=== PATIENT | female | born 1970 | race Caucasian/White ===

== ENCOUNTER 2018-02-21 09:00 | Observation (INO) ==
[2018-02-21 09:58] LABS: Baso % (Auto) 0.7 % (0.0-2.0); Eos % (Auto) 1.2 % (0.0-4.0); Hematocrit 44.1 % (35.0-46.0); Hemoglobin 14.8 gm/dL (11.6-15.3); Lymph % (Auto) 24.1 % (9.0-44.0); Mean Corpuscular HGB Conc 33.6 % (32.0-36.0); Mean Corpuscular Hemoglobin 30.7 pg (27.0-34.0); Mean Corpuscular Volume 91.4 fL (80.0-100.0); Mono # (Auto) 0.2 th/mm3 (0.0-0.9); Mono % (Auto) 5.5 % (0.0-8.0); Neut # (Auto) 2.8 th/mm3 (1.8-7.7); Neut % (Auto) 68.5 % (16.0-70.0); Platelet Count 185 th/mm3 (150-450); Red Blood Count 4.83 mil/mm3 (4.00-5.30); Red Cell Distribution Width 13.4 % (11.6-17.2)
--- NOTE | 2018-02-21 10:05 | CT ---
EXAM DATE: 02/21/2018 10:02 AM EDT AGE/SEX: 47 years / Female INDICATIONS: Episode of memory loss today. CLINICAL DATA: This is the patient's initial encounter. Patient reports that signs and symptoms have been present for 1 day and indicates a pain score of 0/10. MEDICAL/SURGICAL HISTORY: None. Hysterectomy. RADIATION DOSE: 56.35 CTDI (mGy) COMPARISON: No prior exams available for comparison. TECHNIQUE: CT of the head without contrast. Using automated exposure control and adjustment of the mA and/or kV according to patient size, radiation dose was kept as low as reasonably achievable to ob tain optimal diagnostic quality images. DICOM format image data is available electronically for revi ew and comparison. FINDINGS: Cerebrum: The ventricles are normal for age. No evidence of midline shift, mass lesion, hemorrhage or acute infarction. No extraaxial fluid collections are seen. Posterior Fossa: The cerebellum and brainstem are intact. The 4th ventricle is midline. The cerebe llopontine angle is unremarkable. Extracranial: The visualized portion of the orbits is intact. Skull: The calvaria is intact. No evidence of skull fracture. CONCLUSION: 1. Negative CT Head non contrast. . Electronically signed by: Rodrigo Sanders MD 02/21/2018 10:04 AM EDT
[2018-02-21 10:07] LABS: Activated Partial Thrombo Time 24.8 sec (24.3-30.1); Prothrombin Time 10.3 sec (9.8-11.6)
[2018-02-21 10:12] LABS: Bacteria,Urine Rare /hpf; Bilirubin,Urine Negative (Negative); Clarity,Urine Hazy (Clear); Color,Urine Straw (Yellw/Straw); Glucose,Urine (UA) Negative (Negative); Leukocyte Esterase,Urine Small (Negative); Nitrite,Urine Negative (Negative); Specific Gravity,Urine 1.005 (1.002-1.035); Squamous Epithelial Cell,Urine 4 /hpf (0-5)
--- NOTE | 2018-02-21 10:23 | XR ---
EXAM DATE: 02/21/2018 10:02 AM EDT AGE/SEX: 47 years / Female INDICATIONS: Altered mental status CLINICAL DATA: This is the patient's initial encounter. Patient reports that signs and symptoms have been present for 1 day and indicates a pain score of 0/10. MEDICAL/SURGICAL HISTORY: None. . hysterectomy COMPARISON: No prior exams available for comparison. FINDINGS: 2 frontal views of the chest demonstrate the lungs to be symmetrically aerated without evidence of ma ss, infiltrate or effusion. The cardiomediastinal contours are unremarkable. Osseous structures are intact. CONCLUSION: Negative examination. Electronically signed by: Jeff Goodrich MD 02/21/2018 10:21 AM EDT
[2018-02-21 10:26] LABS: Albumin 4.5 g/dL (3.4-5.0); Anion Gap 8 meq/L (5-15); Aspartate Aminotransferase 16 U/L (15-37); Blood Urea Nitrogen 17 mg/dL (7-18); Calcium 9.6 mg/dL (8.5-10.1); Carbon Dioxide 26.9 meq/L (21.0-32.0); Chloride 108 meq/L (98-107); Glomerular Filtration Rate 64 mL/min (>89); Glucose,Random 110 mg/dL (74-106); Sodium 143 meq/L (136-145)
--- NOTE | 2018-02-21 10:34 | ED ---
HPI General Chief Complaint: Altered Mental Status Stated Complaint: Confusion Time Seen by Provider: 02/21/18 09:18 Source: patient and family Mode of arrival: ambulatory Limitations: altered mental status History of Present Illness HPI Narrative: The patient is a 47-year-old female with no significant past medical history that came to the hospital for evaluation due to transient memory loss. Symptoms started yesterday and the patient has difficulty recalling short-term memory. She does remember some things from long-term memory but she cannot remember where her children are. She has a daughter that apparently went recently to [place] and she cannot recall that. All this was noticed by her coworkers today when she was at work and she was having difficulty remembering what she needed to do. Patient states that she had a similar episode 18 years ago with subsequent neurologic evaluation and CT scans and MRIs that were all negative for any type of disease process. Patient has no other complaints at this time. Onset (ago): day(s) (Yesterday) Timing confirmed by: spouse Location: other History of same: Yes Severity: similar to previous episodes Quality: other (Short-term memory loss) Relieving factors: none Context: sudden onset On Anticoagulants: No Associated symptoms: confusion Treatments Prior to Arrival: none Related Data Home Medications Medication Instructions Recorded Confirmed Calcium 500 500 mg PO DAILY 02/21/18 02/21/18 Probiotic PO DAILY 02/21/18 ranitidine HCl 02/21/18 ranitidine HCl 5 PO DAILY 02/21/18 Allergies Allergy/AdvReac Type Severity Reaction Status Date / Time Penicillins Allergy Rash Verified 02/21/18 09:19 sulfamethoxazole Allergy Rash Verified 02/21/18 09:19 [From Bactrim] trimethoprim [From Bactrim] Allergy Rash Verified 02/21/18 09:19 Review of Systems ROS: all other systems reviewed are negative [facility] Medical History Medical History H/O: hysterectomy (Acute) Social History Social History Substance History: No History of Abuse Second Hand Smoke Exposure: No Smoking Status: Never smoker How Often Do You Have a Drink Containing Alcohol: 2 to 4 times a month Immunization History Tetanus Immunization: <5 Years Exam Narrative Exam Narrative: GENERAL: Alert in no distress oriented to person and place. SKIN: Focused skin assessment warm/dry. HEAD: Atraumatic. Normocephalic. EYES: Pupils equal and round. No scleral icterus. No injection or drainage. ENT: No nasal bleeding or discharge. Mucous membranes pink and moist. NECK: Trachea midline. No JVD. CARDIOVASCULAR: Regular rate and rhythm. No murmur appreciated. RESPIRATORY: No accessory muscle use. Clear to auscultation. Breath sounds equal bilaterally. GASTROINTESTINAL: Abdomen soft, non-tender, nondistended. Hepatic and splenic margins not palpable. MUSCULOSKELETAL: No obvious deformities. No clubbing. No cyanosis. No edema. PSYCHIATRIC: Appropriate mood and affect; insight and judgment normal. Neuro General: alert, awake, oriented (Person), gait normal, tone normal, moves all extremities, normal light touch, pain and propioception, no meningeal signs, no focal motor deficits, CN's II-XI intact bilaterally, deep tendon reflexes 2+ bilaterally and confused Cranial Nerves: PERRL, accommodation normal, EOM intact bilaterally and no nystagmus Cognition: normal cognition Speech: speech normal, no anomia, no expressive aphasia and no receptive aphasia Gait: normal gait Motor: muscle tone normal throughout Sensory Exam: no sensory deficits noted Coordination: [id number] test normal and Romberg test normal Course Reevaluation(s) Reevaluation #1: Patient still with symptoms memory loss. Time: 10:00 Consultations Consultation #1: Neurology on-call recommends MRA of brain and carotids as well as MRI of brain with and without contrast and an EEG Time: 10:33 Initial Documented Vital Signs Temperature 97.8 F 02/21/18 09:08 Pulse Rate 75 02/21/18 09:08 Respiratory Rate 18 02/21/18 09:08 Blood Pressure 128/60 02/21/18 09:08 Pulse Oximetry 100 02/21/18 09:08 Last Documented Vital Signs Temperature 97.8 F 02/21/18 09:08 Pulse Rate 77 02/21/18 10:07 Respiratory Rate 21 02/21/18 10:07 Blood Pressure 119/75 02/21/18 10:07 Pulse Oximetry 100 02/21/18 10:07 Critical Care Time Critical Care Time: Yes Total Critical Care Time: 30 Attestation: Aggregate critical care time was 30 minutes. Time to perform other separately billable procedures was not included in the critical care time. My time did not include minutes spent treating any other patients simultaneously or on activities that did not directly contribute to the patient's treatment. The services I provided to this patient were to treat and/or prevent clinically significant deterioration that could result in: Permanent disability. Loss of current lifestyle I provided critical care services requiring my management, as noted below: Chart data review, documentation time, medication orders and management, vital sign assessments/reviewing monitor data, ordering and reviewing lab tests, ordering and interpreting/reviewing x-rays and diagnostic studies, care of the patient and discussion of the patient with the admitting physicians. NIH Stroke Scale NIHSS Time Completed NIHSS Time Completed: 09:20 NIH Stroke Scale Level of Consciousness: 0-Alert Orientation Questions: 0-Answers both correct Responds to Commands: 0-Both tasks correct Gaze Eye Movement: 0-Horizontal movement WNL Visual Rodriguez: 0-No visual field defect Facial Movement: 0-Normal Motor Functions Arm LEFT: 0-No drift Motor Functions Arm RIGHT: 0-No drift Motor Functions Leg LEFT: UN-Amputated/Joint fusion Motor Functions Leg RIGHT: UN-Amputated/Joint fusion Limb Ataxia: 0-No ataxia Sensory Loss: 0-No sensory loss Best Language: 0-Normal Articulation: 0-Normal Extinction or Inattention Sensory: 0-Absent Total: 0 Medical Decision Making MDM Narrative Medical decision making narrative: Patient with transient memory loss of unknown etiology. Imaging of the head was negative for acute intracranial process neurology was consulted. Advised admission for further evaluation. Lab work was unremarkable. No complaints no focal neurologic deficits. Medical Screen Exam Complete: Yes Emergency Medical Condition: Yes Lab Data Lab results reviewed: Yes I reviewed the patient's lab results. Result diagrams: 02/21/18 09:35 02/21/18 09:35 Lab Results 02/21/18 02/21/18 02/21/18 Range/Units 09:30 09:35 09:35 WBC 4.0 (4.0-11.0) th/mm3 RBC 4.83 (4.00-5.30) mil/mm3 Hgb 14.8 (11.6-15.3) gm/dL Hct 44.1 (35.0-46.0) % MCV 91.4 (80.0-100.0) fL MCH 30.7 (27.0-34.0) pg MCHC 33.6 (32.0-36.0) % RDW 13.4 (11.6-17.2) % Plt Count 185 (150-450) th/mm3 MPV 10.0 (7.0-11.0) fL Neut % (Auto) 68.5 (16.0-70.0) % Lymph % (Auto) 24.1 (9.0-44.0) % Louisa % (Auto) 5.5 (0.0-8.0) % Eos % (Auto) 1.2 (0.0-4.0) % Baso % (Auto) 0.7 (0.0-2.0) % Neut # (Auto) 2.8 (1.8-7.7) th/mm3 Lymph # (Auto) 1.0 (1.0-4.8) th/mm3 Louisa # (Auto) 0.2 (0.0-0.9) th/mm3 Eos # (Auto) 0.0 (0.0-0.4) th/mm3 Baso # (Auto) 0.0 (0.0-0.2) th/mm3 WBC Differential . Differential Comment Auto diff final PT 10.3 (9.8-11.6) sec INR 1.0 Ratio APTT 24.8 (24.3-30.1) sec Sodium (136-145) meq/L Potassium (3.5-5.1) meq/L Chloride (98-107) meq/L Carbon Dioxide (21.0-32.0) meq/L Anion Gap (5-15) meq/L BUN (7-18) mg/dL Creatinine (0.50-1.00) mg/dL Estimated GFR (>89) mL/min POC Glucose (68-110) mg/dl Random Glucose (74-106) mg/dL Calcium (8.5-10.1) mg/dL Total Bilirubin (0.2-1.0) mg/dL AST (15-37) U/L ALT (10-53) U/L Alkaline Phosphatase (45-117) U/L Troponin I (0.02-0.05) ng/mL Total Protein (6.4-8.2) g/dL Albumin (3.4-5.0) g/dL TSH (0.358-3.740) uIU/mL Urine Color Straw (Yellw/Straw) Urine Clarity Hazy H (Clear) Urine pH 7.0 (5.0-8.5) Ur Specific [place] 1.005 (1.002-1.035) Urine Protein Negative (Neg-Trace) mg/dL Urine Glucose (UA) Negative (Negative) mg/dL Urine Ketones Negative (Negative) mg/dL Urine Occult Blood Small H (Negative) Urine Nitrate Negative (Negative) Urine Bilirubin Negative (Negative) Urine Urobilinogen Less than 2 (Less than 2) mg/dL Ur Leukocyte Esterase Small H (Negative) Urine RBC 2 (0-3) /hpf Urine WBC 1 (0-5) /hpf Ur Squamous Epith Cells 4 (0-5) /hpf Urine Bacteria Rare H (None) /hpf Micro UA Comment Culture not ind Ur Microscopic Review Not Reportable Urine Culture Comments Culture not ind 02/21/18 02/21/18 Range/Units 09:35 09:37 WBC (4.0-11.0) th/mm3 RBC (4.00-5.30) mil/mm3 Hgb (11.6-15.3) gm/dL Hct (35.0-46.0) % MCV (80.0-100.0) fL MCH (27.0-34.0) pg MCHC (32.0-36.0) % RDW (11.6-17.2) % Plt Count (150-450) th/mm3 MPV (7.0-11.0) fL Neut % (Auto) (16.0-70.0) % Lymph % (Auto) (9.0-44.0) % Louisa % (Auto) (0.0-8.0) % Eos % (Auto) (0.0-4.0) % Baso % (Auto) (0.0-2.0) % Neut # (Auto) (1.8-7.7) th/mm3 Lymph # (Auto) (1.0-4.8) th/mm3 Louisa # (Auto) (0.0-0.9) th/mm3 Eos # (Auto) (0.0-0.4) th/mm3 Baso # (Auto) (0.0-0.2) th/mm3 WBC Differential Differential Comment PT (9.8-11.6) sec INR Ratio APTT (24.3-30.1) sec Sodium 143 (136-145) meq/L Potassium 4.0 (3.5-5.1) meq/L Chloride 108 H (98-107) meq/L Carbon Dioxide 26.9 (21.0-32.0) meq/L Anion Gap 8 (5-15) meq/L BUN 17 (7-18) mg/dL Creatinine 0.93 (0.50-1.00) mg/dL Estimated GFR 64 L (>89) mL/min POC Glucose 112 H (68-110) mg/dl Random Glucose 110 H (74-106) mg/dL Calcium 9.6 (8.5-10.1) mg/dL Total Bilirubin 0.6 (0.2-1.0) mg/dL AST 16 (15-37) U/L ALT 17 (10-53) U/L Alkaline Phosphatase 46 (45-117) U/L Troponin I Less than 0.02 L (0.02-0.05) ng/mL Total Protein 7.6 (6.4-8.2) g/dL Albumin 4.5 (3.4-5.0) g/dL TSH 1.910 (0.358-3.740) uIU/mL Urine Color (Yellw/Straw) Urine Clarity (Clear) Urine pH (5.0-8.5) Ur Specific [place] (1.002-1.035) Urine Protein (Neg-Trace) mg/dL Urine Glucose (UA) (Negative) mg/dL Urine Ketones (Negative) mg/dL Urine Occult Blood (Negative) Urine Nitrate (Negative) Urine Bilirubin (Negative) Urine Urobilinogen (Less than 2) mg/dL Ur Leukocyte Esterase (Negative) Urine RBC (0-3) /hpf Urine WBC (0-5) /hpf Ur Squamous Epith Cells (0-5) /hpf Urine Bacteria (None) /hpf Micro UA Comment Ur Microscopic Review Urine Culture Comments Imaging Data Radiologist's impression: Chest X-Ray 02/21/18 09:27 CONCLUSION: Negative examination. Head CT 02/21/18 09:28 CONCLUSION: 1. Negative CT Head non contrast. . Head MRI 02/21/18 10:30 CONCLUSION: 1. Negative MR Brain with and without contrast. Head MRA 02/21/18 10:30 CONCLUSION: 1. Negative MRA [place] ([place]) non contrast. Neck MRA 02/21/18 10:30 CONCLUSION: 1. Negative MRA Carotids. Percent stenosis is calculated using the diameter of the stenotic region over the diameter of the normal distal internal carotid artery ECG Data Attestation: I personally reviewed and interpreted this ECG as follows: Interpretation: Sinus rhythm 66 bpm NJ interval 151, QTc 399 ms normal axis nonspecific ST-T wave abnormalities. No signs of acute ischemia. Discharge Plan Discharge Disposition Patient Disposition: 30 Still Patient Discharge Condition Condition: Stable Discharge Details Diagnosis: Transient global amnesia, TIA (transient ischemic attack) Physicians Team ED Provider: Jairo Lake Attending Provider: Salvatore Wan Other Providers: Bennie Davis ; Mukund Browning ; Cesar Castrejon Discharge Interventions Interventions: ED Discharge Assessment Last Done: 02/21/18 15:06 Vital Signs Last Done: 02/21/18 10:07 Status ED Status: Left Department Discharge Information Discharge Date/Time: 02/21/18 15:06
[2018-02-21 10:37] LABS: Alanine Aminotransferase 17 U/L (10-53); Alkaline Phosphatase 46 U/L (45-117); Total Protein 7.6 g/dL (6.4-8.2)
[2018-02-21] MEDS ORDERED: Gadobutrol PF 10 MMOL/10 ML Vial (for RAD) IV.SIG ONE (11:35)
--- NOTE | 2018-02-21 11:44 | MR ---
EXAM DATE: 02/21/2018 11:36 AM EDT AGE/SEX: 47 years / Female INDICATIONS: Memory loss. CLINICAL DATA: This is the patient's initial encounter. Patient reports that signs and symptoms have been present for 1 day and indicates a pain score of 0/10. MEDICAL/SURGICAL HISTORY: None. Hysterectomy. COMPAR[place]: [facility] [place] W & W/O CONTRAST, 02/21/2018.. . TECHNIQUE: 3D [id number] MRA was performed. Source images, multiplanar STS MIP, and 3D volum e MIP reconstructions were reviewed. FINDINGS: There is excellent visualization of the major intracranial arteries out to the second-order branch ve ssels. There is no evidence for aneurysm, vessel truncation or stenosis, and no evidence for vascula r malformation. CONCLUSION: 1. Negative MRA [place] ([place]) non contrast. Electronically signed by: Jeff Goodrich MD 02/21/2018 11:42 AM EDT
--- NOTE | 2018-02-21 11:51 | MR ---
EXAM DATE: 02/21/2018 11:41 AM EDT AGE/SEX: 47 years / Female INDICATIONS: Memory loss. CLINICAL DATA: This is the patient's initial encounter. Patient reports that signs and symptoms have been present for 1 day and indicates a pain score of 0/10. MEDICAL/SURGICAL HISTORY: None. Hysterectomy. [place] [facility] [place].. . TECHNIQUE: Multiplanar, multisequence examination of the brain was performed without and with 10 ml G adavist (gadobutrol) contrast as a single exam dose. FINDINGS: Cerebrum: The ventricles are normal for age. No evidence of midline shift, mass lesion, hemorrhage or acute infarction. No extraaxial fluid collections are seen. The pituitary gland and suprasellar cistern are normal in configuration. White Matter: No significant signal abnormalities are seen in the white matter. Posterior Fossa: The cerebellum and brainstem are intact. The 4th ventricle is midline. The cerebel lopontine angle is unremarkable. The cerebellar tonsils are normal in position. Diffusion Imaging: No focal areas of restricted diffusion are seen. No evidence of acute infarction . Extracranial: The visualized portions of the orbits and paranasal sinuses are unremarkable. Post Contrast: No abnormal areas of parenchymal or dural enhancement. No evidence of blood-brain ba rrier breakdown. CONCLUSION: 1. Negative MR Brain with and without contrast. Electronically signed by: Jeff Goodrich MD 02/21/2018 11:50 AM EDT
--- NOTE | 2018-02-21 12:05 | MR ---
EXAM DATE: 02/21/2018 11:58 AM EDT AGE/SEX: 47 years / Female INDICATIONS: Stenosis. CLINICAL DATA: This is the patient's initial encounter. Patient reports that signs and symptoms have been present for 1 day and indicates a pain score of 0/10. MEDICAL/SURGICAL HISTORY: None. Hysterectomy. COMPARISON: C, MRA HEAD W/O CONTRAST, 02/21/2018. C, MR HEAD W & W/O CONTRAST, 02/21/2018. C , CT HEAD W/O CONTRAST, 02/21/2018. . TECHNIQUE: 10 ml Gadavist (gadobutrol) contrast infused MRA (single exam dose) of the extracranial circulation was performed using a neurovascular coil. Postprocessing was performed, including rotati ng sub-volume maximum intensity projections of each carotid artery, rotating full-volume maximum inte nsity projections of both carotid arteries, sagittal and coronal sliding thin-slab reformations of ea ch carotid artery, and left oblique sliding thin-slab reformation through the aortic arch to include the origin of the arch branch vessels. FINDINGS: Aortic Arch : There is a three-vessel origin of the great vessels from the aorta. No evidence of o stial narrowing. Right Carotid : The common carotid artery is intact. The carotid bulb has a normal configuration wi thout ulceration or narrowing. The internal carotid artery lumen is smooth without stenosis. The ex ternal carotid artery is intact. Left Carotid : The common carotid artery is intact. The carotid bulb has a normal configuration wit hout ulceration or narrowing. The internal carotid artery lumen is smooth without stenosis. The ext ernal carotid artery is intact. Vertebrals : The vertebral arteries have a symmetric diameter. No stenotic lesions are seen. CONCLUSION: 1. Negative MRA Carotids. Percent stenosis is calculated using the diameter of the stenotic region over the diameter of the nor mal distal internal carotid artery Electronically signed by: Rodrigo Sanders MD 02/21/2018 12:04 JACLYN
--- NOTE | 2018-02-21 13:07 | ECG ---
Date Performed: 02/21/2018 Time Performed: 09:38:48 PTAGE: 47 years EKG: Sinus rhythm NORMAL ECG NO PREVIOUS TRACING DOCTOR: Mo Lamb Interpretating Date/Time 02/21/2018 13:05:16
--- NOTE | 2018-02-21 13:53 | P.CONNEU ---
History of Present Illness Service: Neurology Primary Care Provider: Lopez Hernández Chief Complaint: Confusion History of Present Illness: Pleasant 47-year-old female brought in for acute episode of confusion. Confusion with difficulty and memory of recent events. This is slowly been improving. She had a similar episode approximately 18 years ago was seen by neurologist testing at that time was negative. She has not had any episodes since that time. Denies any history of seizure, TIA or stroke. Does have a history of low blood pressure and will get lightheaded on going from sitting to standing position. She denies any sick contacts any head or neck trauma any visual loss focal weakness vertigo. No history of tremors. Of note confusion is a small breakfast and may not eat up until dinnertime. She does work full-time. Glucose 112 point care. Blood pressure 120s over 60s. She otherwise feels well. Review of Systems All other systems reviewed negative except as stated in HPI PMFSH - History History Provided By: Patient, Family Member, Friend - Medical History Medical History: Medical History (Last Updated 02/21/18 @ 09:22 by Ute Matos) H/O: hysterectomy - Tobacco History Second Hand Smoke Exposure: No Tobacco Use In Past 30 Days: No Smoking Status: Never smoker - Alcohol History How Often Do You Have a Drink Containing Alcohol: Monthly or less - Substance Use History Substance History: No History of Abuse - Immunization History Tetanus Immunization: <5 Years Medications and Allergies Active Medications: Active Medications Sodium Chloride (Ns Flush) 2 ml IV.FLUSH PRN PRN PRN Reason: FLUSH AFTER USING IV ACCESS Allergies Allergy/AdvReac Type Severity Reaction Status Date / Time Penicillins Allergy Rash Verified 02/21/18 09:19 sulfamethoxazole Allergy Rash Verified 02/21/18 09:19 [From Bactrim] trimethoprim [From Bactrim] Allergy Rash Verified 02/21/18 09:19 Home Medications Medication Instructions Recorded Confirmed Type No Known Home Medications 02/21/18 02/21/18 History Exam Vital signs: Vital Signs 02/21/18 09:08 02/21/18 10:07 Temperature 97.8 F Pulse Rate 75 77 Respiratory Rate 18 21 Blood Pressure 128/60 119/75 Pulse Oximetry 100 100 Intake & Output 02/20/18 02/21/18 02/21/18 18:59 06:59 18:59 Weight 68.039 kg Narrative: Awake alert oriented 3 appropriate. No aphasia. Clear articulate speech. was next to her initial recognize conversation well. Extraocular movements intact visual hanna full pupils 3-2 mm bilaterally no facial asymmetry tongue midline strength 5 out of 5 upper lower limbs good muscle bulk and tone, no clonus plantarflex response reflexes 1+ symmetric. Gait not assessed secondary potential fall risk - Constitutional no acute distress - Routine HEENT Exam Head: Present: normocephalic Eye: Present: EOMI Results - Labs CBC & Chem 7: 02/21/18 09:35 02/21/18 09:35 Labs: Laboratory Results - last 24 hr 02/21/18 02/21/18 02/21/18 09:30 09:35 09:35 WBC 4.0 RBC 4.83 Hgb 14.8 Hct 44.1 MCV 91.4 MCH 30.7 MCHC 33.6 RDW 13.4 Plt Count 185 MPV 10.0 Neut % (Auto) 68.5 Lymph % (Auto) 24.1 [place] % (Auto) 5.5 Eos % (Auto) 1.2 Baso % (Auto) 0.7 Neut # (Auto) 2.8 Lymph # (Auto) 1.0 [place] # (Auto) 0.2 Eos # (Auto) 0.0 Baso # (Auto) 0.0 WBC Differential . Differential Comment Auto diff final PT 10.3 INR 1.0 APTT 24.8 Sodium Potassium Chloride Carbon Dioxide Anion Gap BUN Creatinine Estimated GFR POC Glucose Random Glucose Calcium Total Bilirubin AST ALT Alkaline Phosphatase Troponin I Total Protein Albumin TSH Urine Color Straw Urine Clarity Hazy H Urine pH 7.0 Ur Specific [place] 1.005 Urine Protein Negative Urine Glucose (UA) Negative Urine Ketones Negative Urine Occult Blood Small H Urine Nitrate Negative Urine Bilirubin Negative Urine Urobilinogen Less than 2 Ur Leukocyte Esterase Small H Urine RBC 2 Urine WBC 1 Ur Squamous Epith Cells 4 Urine Bacteria Rare H Micro UA Comment Culture not ind Ur Microscopic Review Not Reportable Urine Culture Comments Culture not ind 02/21/18 02/21/18 09:35 09:37 WBC RBC Hgb Hct MCV MCH MCHC RDW Plt Count MPV Neut % (Auto) Lymph % (Auto) [place] % (Auto) Eos % (Auto) Baso % (Auto) Neut # (Auto) Lymph # (Auto) [place] # (Auto) Eos # (Auto) Baso # (Auto) WBC Differential Differential Comment PT INR APTT Sodium 143 Potassium 4.0 Chloride 108 H Carbon Dioxide 26.9 Anion Gap 8 BUN 17 Creatinine 0.93 Estimated GFR 64 L POC Glucose 112 H Random Glucose 110 H Calcium 9.6 Total Bilirubin 0.6 AST 16 ALT 17 Alkaline Phosphatase 46 Troponin I Less than 0.02 L Total Protein 7.6 Albumin 4.5 TSH 1.910 Urine Color Urine Clarity Urine pH Ur Specific [place] Urine Protein Urine Glucose (UA) Urine Ketones Urine Occult Blood Urine Nitrate Urine Bilirubin Urine Urobilinogen Ur Leukocyte Esterase Urine RBC Urine WBC Ur Squamous Epith Cells Urine Bacteria Micro UA Comment Ur Microscopic Review Urine Culture Comments - Imaging Impressions Chest X-Ray 02/21/18 09:27 CONCLUSION: Negative examination. Head CT 02/21/18 09:28 CONCLUSION: 1. Negative CT Head non contrast. . Head MRI 02/21/18 10:30 CONCLUSION: 1. Negative MR Brain with and without contrast. Head MRA 02/21/18 10:30 CONCLUSION: 1. Negative MRA [place] ([place]) non contrast. Neck MRA 02/21/18 10:30 CONCLUSION: 1. Negative MRA Carotids. Percent stenosis is calculated using the diameter of the stenotic region over the diameter of the normal distal internal carotid artery Review/Management - Diagnosis (1) Transient global amnesia Code(s): G45.4 - Transient global amnesia Status: Acute Current Visit: Yes (2) TIA (transient ischemic attack) Code(s): G45.9 - Transient cerebral ischemic attack, unspecified Status: Acute Current Visit: Yes - Review/Management Plan: Her current amnestic episode Considerations include complex partial seizure, TIA Recommendations Follow-up imaging EEG Cardiology evaluation for consideration of BANDAR, hematology evaluation for exclusion of hypercoagulable state Aspirin daily Suggest the patient have frequent meals during the day She also gives symptoms of orthostatic intolerance she may be related to reduced sympathetic tone or mild dysautonomia. This can be further evaluated in the outpatient setting. Therapy
--- NOTE | 2018-02-21 13:55 | P.HPIM ---
History of Present Illness Service: [facility] Primary Care Physician: Lopez Hernández Chief Complaint: memory loss History of Present Illness: Mrs. Segovia is a 47 yo F who presented to [place] ED with due to recent memory loss. Interview assisted/ collaborated by . Patient reportedly was doing well yesterday; this morning, she has not been able to remember short term events. This was noticed by patient's boss also today. Due to this symptom, patient was taken to hospital for evaluation. Patient had normal memory yesterday. Today, she has not been able to remember conversations happening minutes before or recent events today or many events for the past week. She does remember isolated events such as her daughter crying on the phone. Patient also is having difficulty with remembering where things are in a building such as where a bathroom is. Patient has intact terminal carman memory. Patient has otherwise been doing well. She does not report associated vision changes, headache, numbness/tingling/weakness in extremities, confusion, or change in other senses. has not noticed changes at home. Patient does have chronic lightheadedness when standing from seated position. She associates this with history of hypotension. Patient has not had any recent stress or Psychologic trauma. She lost 30 lbs last year when overworked but has not had any recent weight loss this school year. 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 She recently went to [place] Monday but no other travel. Normal oral intake of regular diet. Patient reports similar episode of symptoms 18 years ago which was associated with right arm and leg paralysis vs weakness where she could not/had difficulty moving right extremities. She states that she had a neuro workup with imaging at that time which was reassuring. This resolved spontaneously after ~1.5 weeks. patient also reports that her blood pressure is chronically low and she gets lightheaded frequently. She eats salt abundantly to help improve her blood pressure. Patient takes Calcium, Ranitidine, and OTC allergy medication but not other medications. - Diagnosis (1) Lightheadedness (2) Transient global amnesia Inpatient Certification: I certify that the inpatient services were ordered in accordance with Medicare regulations governing the order. This includes certification that hospital inpatient services are reasonable and necessary and in the case of services not specified as inpatient-only under 42 CFR 419.22(n), that they are appropriately provided as inpatient services in accordance to with the 2-midnight benchmark under 43 CFR 412.3(e) Review of Systems All other systems reviewed negative except as stated in HPI Constitutional: Denies fatigue, Denies lack of energy Eyes: Denies blurry vision, Denies change in vision Ears, Nose, Mouth, and Throat: Denies headache(s), Denies sinus pressure Cardiovascular: Reports lightheadedness, Denies chest pain, Denies shortness of breath with activity Respiratory: Denies cough, Denies shortness of breath Gastrointestinal: Denies abdominal pain, Denies change in bowel habits Genitourinary: Denies urinary incontinence, Denies urinary urgency Musculoskeletal: Denies numbness, Denies tingling Skin/Breast: Denies itching, Denies rash Neurologic: Reports memory loss, Denies abnormal speech Hematologic/Lymphatic: Denies easy bleeding, Denies easy bruising PMFSH - History History Provided By: Patient, Family Member, Friend - Medical History Medical History: Medical History (Last Updated 02/21/18 @ 22:20 by Salvatore Wan MD) H/O: hysterectomy Lightheadedness - Surgical History Surgical History: Surgical History (Last Updated 02/21/18 @ 22:15 by Salvatore Wan MD) H/O rhinoplasty - Family History Family History: Family History (Last Updated 02/21/18 @ 22:19 by Salvatore Wan MD) Other HTN (hypertension) Hyperlipidemia Psychiatric illness - Tobacco History Second Hand Smoke Exposure: No Tobacco Use In Past 30 Days: No Smoking Status: Never smoker - Alcohol History How Often Do You Have a Drink Containing Alcohol: Monthly or less - Substance Use History Substance History: No History of Abuse - Immunization History Tetanus Immunization: <5 Years Medications and Allergies Active Medications: Active Medications Sodium Chloride (Ns Flush) 2 ml IV.FLUSH PRN PRN PRN Reason: FLUSH AFTER USING IV ACCESS Allergies Allergy/AdvReac Type Severity Reaction Status Date / Time Penicillins Allergy Rash Verified 02/21/18 09:19 sulfamethoxazole Allergy Rash Verified 02/21/18 09:19 [From Bactrim] trimethoprim [From Bactrim] Allergy Rash Verified 02/21/18 09:19 Home Medications Medication Instructions Recorded Confirmed Type Calcium 500 500 mg PO DAILY 02/21/18 02/21/18 History Probiotic PO DAILY 02/21/18 History ranitidine HCl 02/21/18 History ranitidine HCl 5 PO DAILY 02/21/18 History Exam Vital signs: Vital Signs 02/21/18 09:08 02/21/18 10:07 Temperature 97.8 F Pulse Rate 75 77 Respiratory Rate 18 21 Blood Pressure 128/60 119/75 Pulse Oximetry 100 100 Intake & Output 02/20/18 02/21/18 02/21/18 18:59 06:59 18:59 Weight 68.039 kg Narrative: General: No acute distress Skin: no visible rashes or lesions Neck: No appreciated lymphadenopathy or thyromegaly CV: regular rate and rhythm; normal perfusion Resp: CTAB; normal rate MSK: Grossly normal motor function and ROM Neuro: Awake, alert. CN normal. Normal peripheral and motor function. Patient reported significant memory impairment in response to questions regarding recent events. Patient with clear speech; seemed to have normal cognitive ability when thinking of prior events Psych: no appreciated anxiety or obvious affect change Results - Labs CBC & Chem 7: 02/21/18 09:35 02/21/18 09:35 Labs: Short CBC 02/21/18 Range/Units 09:35 WBC 4.0 (4.0-11.0) th/mm3 Hgb 14.8 (11.6-15.3) gm/dL Hct 44.1 (35.0-46.0) % Plt Count 185 (150-450) th/mm3 BMP 02/21/18 09:35 Sodium 143 Potassium 4.0 Chloride 108 H Carbon Dioxide 26.9 BUN 17 Creatinine 0.93 Calcium 9.6 Cardiac Enzymes 02/21/18 Range/Units 09:35 Troponin I Less than 0.02 L (0.02-0.05) ng/mL Liver Function 02/21/18 Range/Units 09:35 Total Bilirubin 0.6 (0.2-1.0) mg/dL AST 16 (15-37) U/L ALT 17 (10-53) U/L Alkaline Phosphatase 46 (45-117) U/L Albumin 4.5 (3.4-5.0) g/dL Urine 02/21/18 Range/Units 09:30 Urine Color Straw (Yellw/Straw) Urine Clarity Hazy H (Clear) Urine pH 7.0 (5.0-8.5) Ur Specific [place] 1.005 (1.002-1.035) Urine Protein Negative (Neg-Trace) mg/dL Urine Glucose (UA) Negative (Negative) mg/dL - Imaging Impressions Chest X-Ray 02/21/18 09:27 CONCLUSION: Negative examination. Head CT 02/21/18 09:28 CONCLUSION: 1. Negative CT Head non contrast. . Head MRI 02/21/18 10:30 CONCLUSION: 1. Negative MR Brain with and without contrast. Head MRA 02/21/18 10:30 CONCLUSION: 1. Negative MRA [place] ([place]) non contrast. Neck MRA 02/21/18 10:30 CONCLUSION: 1. Negative MRA Carotids. Percent stenosis is calculated using the diameter of the stenotic region over the diameter of the normal distal internal carotid artery Caprini VTE Risk Assessment Caprini VTE Risk Assessment: No/Low Risk (score <= 1) Caprini Risk Assessment Model: Point Value = 1 Point Value = 2 Point Value = 3 Point Value = 5 Age 41-60 Minor surgery BMI > 25 kg/m2 Swollen legs Varicose veins or History of unexplained or recurrent spontaneous Oral contraceptives or hormone replacement Sepsis (< 1 month) Serious lung disease, including pneumonia (< 1 month) Abnormal pulmonary function Acute myocardial infarction Congestive heart failure (< 1 month) History of inflammatory bowel disease Medical patient at bed rest Age 61-74 Arthroscopic surgery Major open surgery (> 45 min) Laparoscopic surgery (> 45 min) Malignancy Confined to bed (> 72 hours) Immobilizing plaster cast Central venous access Age >= 75 History of VTE Family history of VTE Factor V Leiden Prothrombin [id number] Lupus anticoagulant Anticardiolipin antibodies Elevated serum homocysteine Heparin-induced thrombocytopenia Other congenital or acquired thrombophilia Stroke (< 1 month) Elective arthroplasty Hip, pelvis, or leg fracture Acute spinal cord injury (< 1 month) Prophylaxis Regimen: Total Risk Factor Score Risk Level Prophylaxis Regimen 0-1 Low Early ambulation 2 Moderate Order ONE of the following: *Sequential Compression Device (SCD) *Heparin 5000 units SQ BID 3-4 Higher Order ONE of the following medications: *Heparin 5000 units SQ TID *Enoxaparin/Lovenox 40 mg SQ daily (WT < 150 kg, CrCl > 30 mL/min) *Enoxaparin/Lovenox 30 mg SQ daily (WT < 150 kg, CrCl > 10-29 mL/min) *Enoxaparin/Lovenox 30 mg SQ BID (WT < 150 kg, CrCl > 30 mL/min) AND/OR *Sequential Compression Device (SCD) 5 or more Highest Order ONE of the following medications: *Heparin 5000 units SQ TID (Preferred with Epidurals) *Enoxaparin/Lovenox 40 mg SQ daily (WT < 150 kg, CrCl > 30 mL/min) *Enoxaparin/Lovenox 30 mg SQ daily (WT < 150 kg, CrCl > 10-29 mL/min) *Enoxaparin/Lovenox 30 mg SQ BID (WT < 150 kg, CrCl > 30 mL/min) AND *Sequential Compression Device (SCD) Assessment and Plan - Assessment (1) Lightheadedness Code(s): R42 - Dizziness and giddiness Status: Acute (2) Transient global amnesia Code(s): G45.4 - Transient global amnesia Status: Acute - Plan amnesia Impression: Unclear etiology. Prior episode 18 years prior associated with right sided weakness. No known cause. DDX- cerebrovascular vs migrainous vs seizure induced vs psych Imaging: Head CT negative Brain MRI w/wo contrast negative MRA neck- carotids- negative MRA Head - [place]- negative Labs: CMP unremarkable, glucose unremarkable Low suspicion for toxicology Neurology consulted -Brain /arterial imaging as above -EEG -Cardiology eval to consider BANDAR -Hematology eval to check for hypercoaguable statate -ASA daily -Depending on results of neuro work-up, can consider psych eval if negative due to stress induced weight loss last year as psych trigger possible Lightheadedness/low BP Impression: Patient suggests orthostatic HTN chronically -will monitor VS during hospitalization -Discussed possibility of evaluation after discharge with consultation if needed ; treatment options such as salt tabs/midodrine if refractory orthostatic HTN discussed as possibilities DVT PPX -Bilateral SCD's Code Status: Full code
[2018-02-21] MEDS ORDERED: Acetaminophen 325 MG Tablet PO PRN (14:10)
[2018-02-21] MEDS: Aspirin 325 MG Tablet PO SCH (15:52)
--- NOTE | 2018-02-21 16:27 | MB ---
cc: Mukund Browning MD DATE: 02/21/2018 REASON FOR CONSULTATION: BANDAR, as the patient has TIAs. HISTORY OF PRESENT ILLNESS: Currently, at the time I saw the patient, she was getting an EEG. She denies dysphagia. Further history is obtained from the chart. She is getting an EEG at the time. The patient apparently presented with altered mental status and confusion. PAST MEDICAL HISTORY: Includes hysterectomy. SOCIAL HISTORY: Rarely drinks alcohol. Denies tobacco use. ALLERGIES: PENICILLIN, SULFAMETHOXAZOLE, TRIMETHOPRIM. MEDICATIONS IN THE HOSPITAL: Aspirin 325 daily. PHYSICAL EXAMINATION: VITAL SIGNS: Pulse 77, blood pressure 119/75, sats 100% on room air. GENERAL: She is alert and oriented x3, in no acute distress, getting an EEG done. Temperature 97.8. NECK: Supple. No JVD. No bruit. CARDIOVASCULAR: S1, S2. No murmurs, rubs, or gallops. LUNGS: Clear to auscultation bilaterally. ABDOMEN: Soft, nontender, nondistended with positive bowel sounds. EXTREMITIES: Lower extremity edema. DIAGNOSTIC DATA: EKG: Normal sinus rhythm at 66 beats per minute, otherwise normal. Nonspecific ST-T wave changes. Chest x-ray negative. Head CT: Negative CT head, noncontrast. Head MRA: Negative MRA, [place], noncontrast. Head MRI: Negative MRI brain with and without contrast. Neck MRA: Negative carotids. LABORATORY DATA: White count 4.0, hemoglobin 14.8, hematocrit 44.1, platelet count 185,000. INR 1.0. Sodium 143, potassium 4.0, chloride 100, bicarbonate 26.9, BUN 17, creatinine 0.93, glucose 112. Troponin less than 0.02. LFTs normal. TSH 1.910. DIAGNOSES: 1. Altered mental status. 2. Confusion. 3. Hyperglycemia. 4. Transient ischemic attack. DISCUSSION: At this point in time, the patient denies dysphagia. We will schedule a BANDAR, schedule permitting, per request of Dr. Davis. MD SHEYLA Todd/ashley , 03:43 PM , 03:50 PM
--- NOTE | 2018-02-21 20:05 | MG ---
cc: Shawna Silva MD EEG NUMBER [id number]. REFERRING PHYSICIAN: Dr. Lake CLINICAL HISTORY: In room C28 for possible TIA. Photic stimulation awake, alert, oriented. MRI negative. Admitted with episode of confusion, mental status change, had trouble with memory of recent events. History of alcohol use. No medications listed. Looks good. DESCRIPTION OF THE PATIENT'S RECORD. The patient has normal alpha rhythm of 9 Hz, 20 microvolt somewhat low amplitude, symmetrical background. EKG does look prime sinus. Photic stimulation was done at the beginning with a mild driving response. No epileptiform features seen. A lot of eye movement towards the end. Answered questions correctly. IMPRESSION: Normal appearing, awake study without any epileptiform features. Clinical correlation. Shawna Silva MD DF/ct , 07:41 PM , 07:45 PM
[2018-02-21 22:09] LABS: Vitamin B12 147 pg/mL (193-986)
[2018-02-22 08:10] LABS: Baso % (Auto) 0.9 % (0.0-2.0); Eos # (Auto) 0.1 th/mm3 (0.0-0.4); Eos % (Auto) 4.1 % (0.0-4.0); Lymph # (Auto) 1.3 th/mm3 (1.0-4.8); Lymph % (Auto) 39.5 % (9.0-44.0); Mean Corpuscular HGB Conc 34.1 % (32.0-36.0); Mean Corpuscular Hemoglobin 30.5 pg (27.0-34.0); Mean Corpuscular Volume 89.5 fL (80.0-100.0); Mean Platelet Volume 10.2 fL (7.0-11.0); Mono # (Auto) 0.2 th/mm3 (0.0-0.9); Mono % (Auto) 6.9 % (0.0-8.0); Neut # (Auto) 1.6 th/mm3 (1.8-7.7); Neut % (Auto) 48.6 % (16.0-70.0); Platelet Count 149 th/mm3 (150-450); Red Blood Count 4.25 mil/mm3 (4.00-5.30); Red Cell Distribution Width 13.2 % (11.6-17.2); White Blood Count 3.3 th/mm3 (4.0-11.0)
[2018-02-22 08:48] LABS: Alanine Aminotransferase 13 U/L (10-53); Albumin 3.5 g/dL (3.4-5.0); Alkaline Phosphatase 34 U/L (45-117); Anion Gap 7 meq/L (5-15); Aspartate Aminotransferase 8 U/L (15-37); Blood Urea Nitrogen 18 mg/dL (7-18); Calcium 8.7 mg/dL (8.5-10.1); Carbon Dioxide 29.2 meq/L (21.0-32.0); Chloride 109 meq/L (98-107); Glomerular Filtration Rate 67 mL/min (>89); Glucose,Random 86 mg/dL (74-106); Potassium 4.1 meq/L (3.5-5.1); Sodium 145 meq/L (136-145)
[2018-02-22] MEDS ORDERED: Chlorhexidine Gluconate 2% 1 Pack (2 Cloths) TOPICAL ONE (09:09)
[2018-02-22] MEDS ORDERED: Metoprolol Tartrate 25 MG Tablet PO ONE (09:09)
--- NOTE | 2018-02-22 09:28 | P.PNNEU ---
Subjective Subjective Comments: No acute events overnight. Spouse states he began remembering everything after about 4 PM after she received an aspirin. Denies any chest pain dyspnea focal weakness visual loss. Active Medications: Active Medications Acetaminophen (Tylenol) 650 mg PO Q4H PRN PRN Reason: Temp > 100.4 Aspirin (Aspirin) 325 mg PO DAILY [facility] Last Admin: 02/21/18 15:52 Dose: 325 mg Lactated Ringer's (Lr 1000 Ml Inj) 1,000 mls @ 30 mls/hr IV.SIG .Q24H TESSA Stop: 02/23/18 09:14 Sodium Chloride (Ns Inj) 500 mls @ 30 mls/hr IV.SIG .Q10H TESSA Ondansetron HCl (Zofran Inj) 4 mg IV.PUSH Q6H PRN PRN Reason: NAUSEA OR VOMITING Sodium Chloride (Ns Flush) 2 ml IV.FLUSH PRN PRN PRN Reason: FLUSH AFTER USING IV ACCESS Allergies/Adverse Reactions: Allergies Allergy/AdvReac Type Severity Reaction Status Date / Time Penicillins Allergy Rash Verified 02/21/18 09:19 sulfamethoxazole Allergy Rash Verified 02/21/18 09:19 [From Bactrim] trimethoprim [From Bactrim] Allergy Rash Verified 02/21/18 09:19 Review of Systems All other systems reviewed negative except as stated in HPI Physical Exam Vital signs: Vital Signs 02/21/18 10:07 02/21/18 16:00 02/21/18 20:00 Temperature 99.0 F 97.9 F Pulse Rate 77 68 Respiratory Rate 21 14 18 Blood Pressure 119/75 117/57 L 100/51 L Pulse Oximetry 100 100 97 02/22/18 00:00 02/22/18 04:00 02/22/18 04:04 Temperature 97.9 F 97.8 F Pulse Rate 64 60 Respiratory Rate 18 18 18 Blood Pressure 95/53 L 95/50 L Pulse Oximetry 98 99 Intake & Output 02/21/18 02/22/18 02/22/18 18:59 06:59 18:59 Weight 72.9 kg 73.3 kg Other: # Voids 2 Narrative: GENERAL: in NAD, SKIN: Warm and dry. HEAD: Atraumatic. Normocephalic. EYES: Pupils equal and round. No scleral icterus. ENT: No nasal bleeding or discharge. Mucous membranes pink and moist. NECK: Trachea midline. No JVD. CARDIOVASCULAR: Regular rate and rhythm. RESPIRATORY: No accessory muscle use. GASTROINTESTINAL: Abdomen soft, non-tender, nondistended. MUSCULOSKELETAL: Extremities without clubbing, cyanosis, or edema. No obvious deformities. NEUROLOGICAL: Awake and alert. Sitting up in bed pleasant calm, appropriate no aphasia, fluent articulate, No facial asymmetry, OU 3-2mm, eomi, VFF, No drift, Motor grossly within normal limits. Five out of 5 muscle strength in the arms and legs. Tone normal in all 4 limbs, PSYCHIATRIC: Appropriate mood and affect; insight and judgment normal. - Constitutional no acute distress - Routine HEENT Exam Head: Present: normocephalic Eye: Present: EOMI Objective Laboratory Results - last 24 hr 02/21/18 02/21/18 02/21/18 09:30 09:35 09:35 WBC 4.0 RBC 4.83 Hgb 14.8 Hct 44.1 MCV 91.4 MCH 30.7 MCHC 33.6 RDW 13.4 Plt Count 185 MPV 10.0 Neut % (Auto) 68.5 Lymph % (Auto) 24.1 [place] % (Auto) 5.5 Eos % (Auto) 1.2 Baso % (Auto) 0.7 Neut # (Auto) 2.8 Lymph # (Auto) 1.0 [place] # (Auto) 0.2 Eos # (Auto) 0.0 Baso # (Auto) 0.0 WBC Differential . Differential Comment Auto diff final PT 10.3 INR 1.0 APTT 24.8 Sodium Potassium Chloride Carbon Dioxide Anion Gap BUN Creatinine Estimated GFR POC Glucose Random Glucose Calcium Total Bilirubin AST ALT Alkaline Phosphatase Troponin I C-Reactive Protein Total Protein Albumin Vitamin B12 TSH Urine Color Straw Urine Clarity Hazy H Urine pH 7.0 Ur Specific [place] 1.005 Urine Protein Negative Urine Glucose (UA) Negative Urine Ketones Negative Urine Occult Blood Small H Urine Nitrate Negative Urine Bilirubin Negative Urine Urobilinogen Less than 2 Ur Leukocyte Esterase Small H Urine RBC 2 Urine WBC 1 Ur Squamous Epith Cells 4 Urine Bacteria Rare H Micro UA Comment Culture not ind Ur Microscopic Review Not Reportable Urine Culture Comments Culture not ind 02/21/18 02/21/18 02/21/18 09:35 09:35 09:37 WBC RBC Hgb Hct MCV MCH MCHC RDW Plt Count MPV Neut % (Auto) Lymph % (Auto) [place] % (Auto) Eos % (Auto) Baso % (Auto) Neut # (Auto) Lymph # (Auto) [place] # (Auto) Eos # (Auto) Baso # (Auto) WBC Differential Differential Comment PT INR APTT Sodium 143 Potassium 4.0 Chloride 108 H Carbon Dioxide 26.9 Anion Gap 8 BUN 17 Creatinine 0.93 Estimated GFR 64 L POC Glucose 112 H Random Glucose 110 H Calcium 9.6 Total Bilirubin 0.6 AST 16 ALT 17 Alkaline Phosphatase 46 Troponin I Less than 0.02 L C-Reactive Protein Less than 0.29 Total Protein 7.6 Albumin 4.5 Vitamin B12 147 L TSH 1.910 Urine Color Urine Clarity Urine pH Ur Specific [place] Urine Protein Urine Glucose (UA) Urine Ketones Urine Occult Blood Urine Nitrate Urine Bilirubin Urine Urobilinogen Ur Leukocyte Esterase Urine RBC Urine WBC Ur Squamous Epith Cells Urine Bacteria Micro UA Comment Ur Microscopic Review Urine Culture Comments 02/22/18 02/22/18 06:18 06:18 WBC 3.3 L RBC 4.25 Hgb 13.0 Hct 38.0 MCV 89.5 MCH 30.5 MCHC 34.1 RDW 13.2 Plt Count 149 L MPV 10.2 Neut % (Auto) 48.6 Lymph % (Auto) 39.5 [place] % (Auto) 6.9 Eos % (Auto) 4.1 H Baso % (Auto) 0.9 Neut # (Auto) 1.6 L Lymph # (Auto) 1.3 [place] # (Auto) 0.2 Eos # (Auto) 0.1 Baso # (Auto) 0.0 WBC Differential . Differential Comment Auto diff final PT INR APTT Sodium 145 Potassium 4.1 Chloride 109 H Carbon Dioxide 29.2 Anion Gap 7 BUN 18 Creatinine 0.89 Estimated GFR 67 L POC Glucose Random Glucose 86 Calcium 8.7 D Total Bilirubin 0.6 AST 8 L ALT 13 Alkaline Phosphatase 34 L Troponin I C-Reactive Protein Total Protein 6.0 L D Albumin 3.5 D Vitamin B12 TSH Urine Color Urine Clarity Urine pH Ur Specific [place] Urine Protein Urine Glucose (UA) Urine Ketones Urine Occult Blood Urine Nitrate Urine Bilirubin Urine Urobilinogen Ur Leukocyte Esterase Urine RBC Urine WBC Ur Squamous Epith Cells Urine Bacteria Micro UA Comment Ur Microscopic Review Urine Culture Comments Review/Management - Diagnosis (1) Transient global amnesia Code(s): G45.4 - Transient global amnesia Status: Acute Current Visit: Yes (2) TIA (transient ischemic attack) Code(s): G45.9 - Transient cerebral ischemic attack, unspecified Status: Acute Current Visit: Yes - Review/Management Plan: Her current amnestic episode Considerations include complex partial seizure, TIA History of clot during and she apparently was on aspirin for short period of time at that time. Hypercoagulable state is a possibility hematology further evaluation Low B12 level Recommendations MRI, MRA brain normal EEG negative for seizure activity B12 supplementation Cardiology evaluation for consideration of BANDAR; pending scheduled for this morning hematology evaluation for exclusion of hypercoagulable state; pending Aspirin daily Suggest the patient have frequent meals during the day She also gives symptoms of orthostatic intolerance she may be related to reduced sympathetic tone or mild dysautonomia. This can be further evaluated in the outpatient setting. Therapy Can be discharged after the above workup has been completed follow-up in the outpatient setting with her primary care physician in 2-3 weeks time Discussed with patient and spouse
[2018-02-22] MEDS ORDERED: Sodium Chlor 0.9% Inj 500 ML IV.SIG SCH (10:00)
--- NOTE | 2018-02-22 11:15 | P.PNIM ---
Subjective Interval history: Mrs. Segovia was afebrile with stable vital signs overnight. Patient interviewed with her today; they report that she has had resolution of her memory this morning. It appeared to improve yesterday afternoon after she was given aspirin. Patient does not report chest pain, shortness of breath, abnormal urination, or abnormal bowel movements. Patient requests discharge and outpatient follow-up if possible Physical Exam Vital signs: Vital Signs 02/21/18 16:00 02/21/18 20:00 02/22/18 00:00 Temperature 99.0 F 97.9 F 97.9 F Pulse Rate 68 64 Respiratory Rate 14 18 18 Blood Pressure 117/57 L 100/51 L 95/53 L Pulse Oximetry 100 97 98 02/22/18 04:00 02/22/18 04:04 02/22/18 08:00 Temperature 97.8 F 97.6 F Pulse Rate 60 67 Respiratory Rate 18 18 20 Blood Pressure 95/50 L 105/50 L Pulse Oximetry 99 969 H Intake & Output 02/21/18 02/22/18 02/22/18 18:59 06:59 18:59 Weight 72.9 kg 73.3 kg Other: # Voids 2 Narrative: General: No acute distress Skin: no visible lesions CV: regular rate and rhythm; normal perfusion Resp: CTAB; normal rate MSK: Grossly normal motor function and ROM Neuro: Awake, alert. CN normal. Normal peripheral and motor function. Seemingly normal memory about today's events Psych: no appreciated anxiety or obvious affect change Results - Labs CBC & Chem 7: 02/22/18 06:18 02/22/18 06:18 Laboratory Results - last 24 hr 02/21/18 02/22/18 02/22/18 09:35 06:18 06:18 WBC 3.3 L RBC 4.25 Hgb 13.0 Hct 38.0 MCV 89.5 MCH 30.5 MCHC 34.1 RDW 13.2 Plt Count 149 L MPV 10.2 Neut % (Auto) 48.6 Lymph % (Auto) 39.5 [place] % (Auto) 6.9 Eos % (Auto) 4.1 H Baso % (Auto) 0.9 Neut # (Auto) 1.6 L Lymph # (Auto) 1.3 [place] # (Auto) 0.2 Eos # (Auto) 0.1 Baso # (Auto) 0.0 WBC Differential . Differential Comment Auto diff final Sodium 145 Potassium 4.1 Chloride 109 H Carbon Dioxide 29.2 Anion Gap 7 BUN 18 Creatinine 0.89 Estimated GFR 67 L Random Glucose 86 Calcium 8.7 D Total Bilirubin 0.6 AST 8 L ALT 13 Alkaline Phosphatase 34 L C-Reactive Protein Less than 0.29 Total Protein 6.0 L D Albumin 3.5 D Vitamin B12 147 L - Imaging Impressions Head MRI 02/21/18 10:30 CONCLUSION: 1. Negative MR Brain with and without contrast. Head MRA 02/21/18 10:30 CONCLUSION: 1. Negative MRA [place] ([place]) non contrast. Neck MRA 02/21/18 10:30 CONCLUSION: 1. Negative MRA Carotids. Percent stenosis is calculated using the diameter of the stenotic region over the diameter of the normal distal internal carotid artery Assessment and Plan - Assessment (1) Lightheadedness Code(s): R42 - Dizziness and giddiness Status: Acute (2) Transient global amnesia Code(s): G45.4 - Transient global amnesia Status: Acute - Plan Amnesia Impression: Unclear etiology. Prior episode 18 years prior associated with right sided weakness. No known cause. DDX- cerebrovascular vs migrainous vs seizure induced vs psych Imaging: Head CT negative Brain MRI w/wo contrast negative MRA neck- carotids- negative MRA Head - [place]- negative BANDAR- bubble study positive for small R to L shunting across atrial septum; no visible shunt with color Doppler. Atrial septum moderately aneurysmal Labs: CMP unremarkable, glucose unremarkable. B12 low EEG normal Neurology consulted -Brain /arterial imaging as above -Cardiology eval to consider BANDAR -Hematology eval to check for hypercoaguable state -ASA daily -B12 supplementation on discharge Lightheadedness/low BP Impression: Patient suggests orthostatic HTN chronically -will monitor VS during hospitalization -Discussed possibility of evaluation after discharge with consultation if needed ; treatment options such as salt tabs/midodrine if refractory orthostatic HTN discussed as possibilities -Patient given handout regarding lifestyle measures/salt in diet and plans to f/u afterwards with PCP/referral DVT PPX -Bilateral SCD's Code Status: Full code Discharge Planning: Pending Hematology work-up for hypercoagulability
[2018-02-22] MEDS: Aspirin 325 MG Tablet PO SCH (11:22)
[2018-02-22] MEDS ORDERED: Lidocaine 2% 100 MG/5 ML Syringe ONE (12:55)
--- NOTE | 2018-02-22 13:35 | ECHRPT ---
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 [employer] Mukund Browning MD, FACC, FSCAI (Electronically Signed) Final Date:22 February 2018 13:34
[2018-02-22] MEDS ORDERED: Aspirin 325 MG Tablet PO SCH (16:49)
--- NOTE | 2018-02-23 01:11 | MB ---
cc: Cesar Castrejon MD DATE: 02/22/2018 REASON FOR CONSULT: The patient presented with stroke-like symptoms. Hematology has been consulted to assess for any underlying hypercoagulable state. HISTORY OF PRESENT ILLNESS: This is a 47-year-old female who has a history of orthostatic hypotension and no other significant medical problems. The patient presented to the [facility] emergency department because of difficulty remembering things. She also felt weak. The patient states that she does not remember any of the events. She was brought to the hospital by her . Based on the review of notes from the EMR, the patient was unable to remember conversations. The patient has no recollection of these events. The patient has had similar symptoms of approximately 18 years ago that were associated with right arm and leg weakness. At that time, she had extensive neurology workup, but no underlying etiology was found. She does not follow with the neurology outpatient. Due to these symptoms, an underlying TIA or stroke were suspected. The patient underwent extensive imaging including CT of the head, brain MRI, MRI of the neck, MRI of the head, which was all negative. The patient was seen by neurology and a diagnosis of transient global amnesia and TIA was given. She has undergone EEG testing and Cardiology was also consulted for consideration of a BANDAR. The patient's symptoms have completely resolved. She is awake and alert. She has good strength in all extremities. She does not have any memory or speech issues. She is requesting to be discharged from the hospital. Hematology has been consulted to make recommendations to assess for any underlying hypercoagulable state. The patient does not have any past history of DVT, pulmonary embolism, PR. There is no family history of hypercoagulable conditions. She has 2 children that are healthy. She does not smoke cigarettes. She occasionally drinks alcohol. No illicit drug use. REVIEW OF SYSTEMS: A comprehensive review of system was completed, which is negative except as described in the HPI. PAST MEDICAL HISTORY: History of orthostatic hypotension, history of stroke, TIA-like event 18 years ago. PAST SURGICAL HISTORY: History of hysterectomy, rhinoplasty. FAMILY HISTORY: Reviewed and significant for hypertension, hyperlipidemia. No history of hypercoagulable state. SOCIAL HISTORY: She is . She works at a local school. She does not smoke cigarettes. She occasionally drinks alcohol. No illicit drug use. PHYSICAL EXAMINATION: VITAL SIGNS: Blood pressure is 106/50, pulse in the 70s, temperature is 97.8. O2 saturations are 98% on room air. GENERAL: Well-developed, well-nourished female, in no apparent distress. HEENT: Pupils are equal, round, reactive to light. EOMI. No thrush or lesions. NECK: Supple. No JVD. No bruits. No lymphadenopathy. CHEST: Clear to auscultation bilaterally. CARDIAC: S1, S2. Regular rate and rhythm. ABDOMEN: Soft, nontender, nondistended. Bowel sounds are present. EXTREMITIES: Without edema or cyanosis. SKIN: Without any petechiae, lesions, or bruises. NEUROLOGIC: No focal deficits. PSYCHIATRIC: Mood and affect are appropriate. LABORATORY DATA: WBC 3.3, hemoglobin 13, platelet count 149. Sodium 145, potassium 4.1, chloride 109, CO2 is 29.2, BUN is 18, creatinine is 0.89, GFR 67, calcium is 8.7. Total bilirubin 0.6, AST is 8, ALT 13, alkaline phosphatase 34, total protein is 6, albumin is 3.5. TSH is 1.9. IMAGING STUDIES: Reviewed in the EMR. 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 She has no significant past medical history except the possibility of orthostatic hypotension and remote history of TIA/stroke-like symptoms; however, a clear diagnosis of TIA or stroke was not made. She regularly follows up with her primary care physician, but she has not had any major medical issues. She presents to the emergency department with symptoms of memory loss and inability to remember any of the events as to how she ended up in the emergency room. 1. Lightheadedness/transient global amnesia? Transient ischemic attack. She is currently being seen by Neurology. She had extensive workup including CT of the head, brain MRI/MRA of the neck, MRA of the head, which was all negative. She also had an EEG, which was negative. It is certainly not clear what precipitated her symptoms. Since TIA is the working diagnosis, I would recommend obtaining hypercoagulable workup in this young patient. We will order a complete hypercoagulable workup. I have discussed this case with Dr. Wan. The patient can be discharged from the hospital once the blood work has been drawn. She can follow up in the hematology clinic in 3-4 weeks for followup. Thank you for allowing me to participate in the care of this patient. MD KISHOR August/thor , 12:06 AM , 12:19 AM
[2018-02-26 03:50] LABS: Homocysteine (Cardiovascular) 15.1 umol/L (<10.4)
[2018-02-26 13:52] LABS: Dil Russell Viper Venom Conf ( ND (NEGATIVE); Dil Russell Viper Venom Time M ND (CORRECTED); Lupus Anticoagulant PTT Screen 32 seconds (< OR = 40)
[2018-02-26 23:52] LABS: Activated Protein C Resistance 4.5 ratio (> OR = 2.1)
[2018-02-28 19:01] LABS: Factor V Leiden Mutation Negative (Negative); Protein C Antigen 86 % (70-150)
== END 2018-02-22 21:00 | disposition home or self-care (01) ==
LOC: NEPC 09:00 → NEDA 12:55 → INTOOBSV 12:55 → N05 14:57
PROVIDERS: ADMIT Family Medicine; ATTEND Family Medicine
DX: R73.9 Hyperglycemia, unspecified; G40.209 Localization-related (focal) (partial) symptomatic epilepsy and epileptic syndromes with complex partial seizures, not intractable, without status epilepticus; I10 Essential (primary) hypertension; Z88.0 Allergy status to penicillin; Z82.49 Family history of ischemic heart disease and other diseases of the circulatory system; G45.4 Transient global amnesia; Z88.2 Allergy status to sulfonamides; Z90.710 Acquired absence of both cervix and uterus; I63.9 Cerebral infarction, unspecified; Z86.73 Personal history of transient ischemic attack (TIA), and cerebral infarction without residual deficits